=== PATIENT | male | born 1965 | race Caucasian/White ===

== ENCOUNTER 2019-04-13 17:41 | Emergency (ER) | payer OTHER ==
[2019-04-13 18:48] VITALS: BP 133/79
--- NOTE | 2019-04-13 19:25 | UC ---
HPI Wound/Suture Re-check - HPI Summary HPI Summary: The 53-year-old male who sustained a large laceration to his right inner calf approximately 12 days ago. He received laceration repair in [place]. He was told to have the sutures removed in 2 days from now however he is in this area today and wanted it rechecked and possibly sutures removed today. He does have a mountain biking activity he wants to do this weekend as well as hiking. - History Of Current Complaint Chief Complaint: UCLaceration Stated Complaint: SUTURE REMOVAL Time Seen by Provider: 04/13/19 18:28 Hx Obtained From: Patient Onset/Duration: Gradual Onset Severity: Moderate Pain Intensity: 0 - Allergies/Home Medications Allergies/Adverse Reactions: Allergies Allergy/AdvReac Type Severity Reaction Status Date / Time Penicillins Allergy Unknown Verified 04/13/19 18:45 Reaction Details Home Medications: Home Medications NK [No Home Medications Reported] 04/13/19 [History Confirmed 04/13/19] PMH/Surg Hx/FS Hx/Imm Hx Previously Healthy: Yes - Surgical History Surgery Procedure, Year, and Place: R rotator cuff - Family History Known Family History: Positive: Non-Contributory - Social History Occupation: Employed Full-time Alcohol Use: Daily Substance Use Type: None Smoking Status (MU): Never Smoked Tobacco Review of Systems All Other Systems Reviewed And Are Negative: Yes Skin: Positive: Other - The patient received 25 sutures 12 days ago. He was given a course of antibiotics for infection prevention. Is Patient Immunocompromised?: No Physical Exam Triage Information Reviewed: Yes Appearance: Well-Appearing, No Pain Distress, Well-Nourished Vital Signs: Initial Vital Signs Temp 98.6 F 04/13/19 18:46 Pulse 99 04/13/19 18:46 Resp 18 04/13/19 18:46 BP 133/79 04/13/19 18:46 Pulse Ox 95 04/13/19 18:46 Vital Signs Reviewed: Yes Musculoskeletal Exam: Normal Neurological Exam: Normal Psychological Exam: Normal Skin: Positive: Other - The laceration appears to be healing and a large amount of scabbing is present. The areas surrounded by approximately 1.0 cm of erythema however it is not warm to touch. Minimal tenderness on palpation. No evidence of secondary skin infection. Course/Dx - Course Course Of Treatment: I was able to remove 14 suture successfully. I would prefer the patient wait a few more days before he gets the rest of the sutures removed. I also advised him he should not do mountain biking this weekend and should limit his hiking. He would prefer to come back on Wednesday for the rest of the sutures to be removed. He tolerated the removal of the 14 sutures without difficulty. - Diagnosis Provider Diagnosis: Encounter for removal of sutures Discharge ED - Sign-Out/Discharge Documenting (check all that apply): Patient Departure All imaging exams completed and their final reports reviewed: No Studies - Discharge Plan Condition: Good Disposition: HOME Referrals: No Primary Care Phys,NOPCP [Primary Care Provider] - Additional Instructions: Return on Wednesday to have the rest of the sutures removed. Today we removed 14 of the 25 stitches. - Billing Disposition and Condition Condition: GOOD Disposition: Home - Attestation Statements Provider Attestation: This patient was not seen by. I was available for consult. Chart reviewed. HAMIDA
== END 2019-04-13 19:35 | disposition home or self-care (01) ==
LOC: UCEAST 17:41
DX: S81.811D Laceration without foreign body, right lower leg, subsequent encounter (principal); Z88.0 Allergy status to penicillin; X58.XXXD Exposure to other specified factors, subsequent encounter
CPT/HCPCS: 99201; G0463

== ENCOUNTER 2019-04-18 16:46 | Emergency (ER) | payer OTHER ==
[2019-04-18 18:08] VITALS: BP 133/87
[2019-04-18] MEDS ORDERED: Benzoin Compound STICK TOPICAL ONE (18:16)
--- NOTE | 2019-04-18 18:43 | UC ---
HPI Wound/Suture Re-check - HPI Summary HPI Summary: had 25 suture put in right calf 14 days ago after getting leg injured while riding mountain bike---14 of the sutures were removed 2 days ago - History Of Current Complaint Chief Complaint: UCSkin Stated Complaint: SUTURE REMOVAL Time Seen by Provider: 04/18/19 18:13 Hx Obtained From: Patient Onset/Duration: Sudden Onset, Lasting Weeks - 2, Still Present Pain Intensity: 0 Pain Scale Used: 0-10 Numeric - Allergies/Home Medications Allergies/Adverse Reactions: Allergies Allergy/AdvReac Type Severity Reaction Status Date / Time Penicillins Allergy Unknown Verified 04/18/19 18:08 Reaction Details PMH/Surg Hx/FS Hx/Imm Hx Previously Healthy: Yes - Surgical History Surgical History: Yes Surgery Procedure, Year, and Place: R rotator cuff - Family History Known Family History: Positive: Non-Contributory - Social History Occupation: Employed Full-time Lives: With Family Alcohol Use: Daily Substance Use Type: None Smoking Status (MU): Never Smoked Tobacco Review of Systems All Other Systems Reviewed And Are Negative: Yes Constitutional: Positive: Negative Skin: Positive: Other - scabbed and healing wound with surrounding erythema but no evidence Eyes: Positive: Negative ENT: Positive: Negative Respiratory: Positive: Negative Cardiovascular: Positive: Negative Gastrointestinal: Positive: Negative Genitourinary: Positive: Negative Motor: Positive: Negative Neurovascular: Positive: Negative Musculoskeletal: Positive: Negative Neurological: Positive: Negative Psychological: Positive: Negative Is Patient Immunocompromised?: No Physical Exam Triage Information Reviewed: Yes Appearance: Well-Appearing, No Pain Distress, Well-Nourished Vital Signs: Initial Vital Signs Temp 98.4 F 04/18/19 18:03 Pulse 61 04/18/19 18:03 Resp 16 04/18/19 18:03 BP 133/87 04/18/19 18:03 Pulse Ox 98 04/18/19 18:03 Vital Signs Reviewed: Yes Eye Exam: Normal Eyes: Positive: Conjunctiva Clear ENT Exam: Normal ENT: Positive: Normal ENT inspection, Hearing grossly normal. Negative: Trismus , Muffled voice, Hoarse voice Dental Exam: Normal Neck exam: Normal Neck: Positive: Supple, Nontender Respiratory Exam: Normal Respiratory: Positive: Chest non-tender, No respiratory distress, No accessory muscle use Cardiovascular Exam: Normal Cardiovascular: Positive: Brisk Capillary Refill Musculoskeletal Exam: Normal Musculoskeletal: Positive: Strength Intact, ROM Intact, No Edema Neurological Exam: Normal Neurological: Positive: Alert, Muscle Tone Normal Psychological Exam: Normal Skin: Positive: Other - irregularrly shaped about 10 cm long healed , scabbed laceration on right lower leg-about 5 mm of surrounding erythema no drainage Course/Dx - Course Course Of Treatment: remaining sutures removed--patient tolerated well, has follow with pcp this Wednesday in [place]-patient encouraged to keep wrapped avoid active sports and follow as planned - Diagnosis Provider Diagnosis: Encounter for removal of sutures Discharge ED - Sign-Out/Discharge Documenting (check all that apply): Patient Departure All imaging exams completed and their final reports reviewed: No Studies - Discharge Plan Condition: Stable Disposition: HOME Patient Education Materials: Warm Compress or Soak (ED), Acute Wounds (ED) Referrals: No Primary Care Phys,NOPCP [Primary Care Provider] - Additional Instructions: Follow with provider in [place] on Wednesday as planned - Billing Disposition and Condition Condition: STABLE Disposition: Home
== END 2019-04-18 18:51 | disposition home or self-care (01) ==
LOC: UCEAST 16:46
DX: S81.811D Laceration without foreign body, right lower leg, subsequent encounter (principal); Z88.0 Allergy status to penicillin; V19.9XXD Pedal cyclist (driver) (passenger) injured in unspecified traffic accident, subsequent encounter
CPT/HCPCS: 99211; G0463